=== PATIENT | male | born 1990 | race Caucasian/White ===

== ENCOUNTER 2018-05-22 09:24 | Emergency (ER) | payer MEDICAID, OTHER ==
[2018-05-22] MEDS ORDERED: NS 1,000 ML IV ONE (10:08)
--- NOTE | 2018-05-22 10:16 | EDPHY ---
HPI/HX/ROS/PE/MDM Narrative: CHIEF COMPLAINT: Shortness of breath, anxiety HPI: The patient is a 27-year-old male with no history of cardiac disease. He states that approximately 3 this morning he did some cocaine followed by 300 mg of Advil THC. Approximately 3 hr later he began experiencing severe anxiety and shortness of breath, which he describes as feeling like "a heart attack." He now feels better. He denies chest pain at any point. REVIEW OF SYSTEMS: Aside from elements discussed in the HPI, a comprehensive 10-point review of systems was reviewed and is negative. PMH: No history of cardiac disease. SOCIAL HISTORY: Patient admits to polysubstance abuse. Single PHYSICAL EXAM: General:Patient is alert, in no acute distress. He appears mildly anxious. ENT:Eyes are normal to inspection. ENT inspection normal. Neck: Normal inspection. Full range of motion. Respiratory:No respiratory distress. Breath sounds normal bilaterally. Cardiovascular: Tachycardic rate, regular rhythm. Strong peripheral pulses. Normal cap refill. Abdomen:The abdomen is nontender to palpation. There are no peritoneal signs. There are normal bowel sounds. Back: Normal to inspection. No tenderness to palpation. Skin: Normal color. No rash. Warm and dry. Extremities: Normal appearance. Full range of motion. Neuro: Oriented x3. Normal motor function. Normal sensory function. ED Course: Patient was treated with IV fluids and IV Ativan. He responded quite well to this treatment. On re-evaluation at 11:45 a.m., the patient is mildly sleepy but his vital signs have normalized. His pupils remain large. There are no focal neurologic deficits. I discussed options with the patient and his mother and she would like to take him home. She agrees to keep a close eye on him. Our workup in the emergency department is negative for signs of acute toxidrome or toxic ingestion. There are no signs of acute coronary syndrome. - Data Points Laboratory Results: Laboratory Results 05/22/18 10:15 05/22/18 10:15 05/22/18 05/22/18 05/22/18 10:23 10:15 10:15 WBC 8.44 10^3/uL 10^3/uL (3.80-9.50) RBC 4.94 10^6/uL 10^6/uL (4.40-6.38) Hgb 15.7 g/dL g/dL (13.7-17.5) Hct 44.3 % % (40.0-51.0) MCV 89.7 fL fL (81.5-99.8) MCH 31.8 pg pg (27.9-34.1) MCHC 35.4 g/dL g/dL (32.4-36.7) RDW 12.0 % % (11.5-15.2) Plt Count 193 10^3/uL 10^3/uL (150-400) MPV 10.5 fL fL (8.7-11.7) Neut % (Auto) 72.8 % % (39.3-74.2) Lymph % (Auto) 18.7 % % (15.0-45.0) [place] % (Auto) 7.9 % % (4.5-13.0) Eos % (Auto) 0.0 % L % (0.6-7.6) Baso % (Auto) 0.2 % L % (0.3-1.7) Nucleat RBC Rel Count 0.0 % % (0.0-0.2) Absolute Neuts (auto) 6.14 10^3/uL 10^3/uL (1.70-6.50) Absolute Lymphs (auto) 1.58 10^3/uL 10^3/uL (1.00-3.00) Absolute Monos (auto) 0.67 10^3/uL 10^3/uL (0.30-0.80) Absolute Eos (auto) 0.00 10^3/uL L 10^3/uL (0.03-0.40) Absolute Basos (auto) 0.02 10^3/uL 10^3/uL (0.02-0.10) Absolute Nucleated RBC 0.00 10^3/uL 10^3/uL (0-0.01) Immature Gran % 0.4 % % (0.0-1.1) Immature Gran # 0.03 10^3/uL 10^3/uL (0.00-0.10) Sodium 137 mEq/L mEq/L (135-145) Potassium 3.9 mEq/L mEq/L (3.5-5.2) Chloride 103 mEq/L mEq/L (97-110) Carbon Dioxide 22 mEq/l mEq/l (22-31) Anion Gap 12 mEq/L mEq/L (6-14) BUN 19 mg/dL mg/dL (7-23) Creatinine 1.1 mg/dL mg/dL (0.7-1.3) Estimated GFR > 60 Glucose 122 mg/dL H mg/dL (70-100) Calcium 9.5 mg/dL mg/dL (8.5-10.4) POC Troponin I 0.00 ng/mL ng/mL (0.00-0.08) Medications Given: Discontinued Medications Sodium Chloride (Ns) 1,000 mls @ 0 mls/hr IV EDNOW ONE; Wide Open PRN Reason: Protocol Stop: 05/22/18 10:09 Last Admin: 05/22/18 10:18 Dose: 1,000 mls Point of Care Test Results: Chemistry 05/22/18 10:23 POC Troponin I 0.00 ng/mL ng/mL (0.00-0.08) General Time Seen by Provider: 05/22/18 10:03 Initial Vital Signs: Initial Vital Signs Temperature (C) 36.4 C 05/22/18 09:33 Heart Rate 110 H 05/22/18 09:33 Respiratory Rate 20 05/22/18 09:33 Blood Pressure 168/90 H 05/22/18 09:33 O2 Sat (%) 97 05/22/18 09:33 O2 Delivery Mode Room Air Allergies/Adverse Reactions: No Known Allergies Allergy (Unverified 05/22/18 09:33) Home Medications: Medication Instructions Recorded NK [No Known Home Meds] 05/22/18 Departure - Departure Disposition: Home, Routine, Self-Care Clinical Impression: Marijuana abuse, Cocaine abuse Condition: Good Instructions: Cocaine Abuse (ED) Additional Instructions: Follow-up with your primary doctor within 72 hours. Return to the Emergency Department for fever, chest pain, shortness of breath, increasing pain or other worsening of condition. Please stop using drugs. Referrals: NONE *PRIMARY CARE P,. [Primary Care Provider] - As per Instructions
[2018-05-22 10:35] LABS: PLATELET COUNT 193 10^3/uL (150-400)
[2018-05-22 12:00] VITALS: BP 126/75
--- NOTE | 2018-05-22 14:49 | CPEKG ---
Test Reason : OPEN Blood Pressure : / mmHG Vent. Rate : 083 BPM Atrial Rate : 083 BPM P-R Int : 171 ms QRS Dur : 110 ms QT Int : 341 ms P-R-T Axes : 045 030 -05 degrees QTc Int : 401 ms Sinus rhythm Probable left ventricular hypertrophy Borderline T abnormalities, inferior leads Confirmed by Israel Snider [id number] on 05/22/2018 2:48:26 PM Referred By: Israel Snider Confirmed By:Israel Snider
== END 2018-05-22 12:03 | disposition home or self-care (01) ==
DX: F14.10 Cocaine abuse, uncomplicated (principal); F12.10 Cannabis abuse, uncomplicated; E86.9 Volume depletion, unspecified
CPT/HCPCS: 84484-ER